=== PATIENT | male | born 1950 | race Caucasian/White ===

== ENCOUNTER → 2018-05-25 08:02 | Outpatient (CLI) | payer MEDICARE, OTHER, SELFPAY ==
[2018-05-25 11:08] LABS: Add Manual Diff / Slide Review NO; Basophils Absolute Auto 0 /uL (0-100); Basophils Percent Auto 0.4 % (0-2); Eosinophils Absolute Auto 200 /uL (0-450); Hematocrit 45.1 % (41-53); Hemoglobin 15.2 g/dL (13.5-17.5); Lymphocytes Absolute Auto 2100 /uL (1100-4500); Mean Corpuscular HGB Conc 33.6 % (30-36); Mean Corpuscular Hemoglobin 31.4 PG (26-34); Mean Corpuscular Volume 93.5 fL (80-100); Monocytes Absolute Auto 600 /uL (0-900); Monocytes Percent Auto 8.9 % (3-14); Neutrophils Absolute Auto 3900 /uL (1500-7000); Neutrophils Percent Auto 56.7 % (50-75); Platelet Count 137 X10^3/uL (150-400); Red Blood Cell Count 4.83 X10^6/uL (4.5-5.9); White Blood Cell Count 6.9 X10^3/uL (4.5-11.0)
[2018-05-25 11:38] LABS: Alanine Aminotransferase 49 IU/L (21-72); Albumin 4.3 g/dL (3.5-5.0); Albumin Globulin Ratio 1.6 (1.0-2.8); Alkaline Phosphatase 57 U/L (38-126); Aspartate Aminotransferase 35 IU/L (17-59); BUN Creatinine Ratio 18.9 (6-22); Blood Urea Nitrogen 17 mg/dL (9-20); Calcium 8.9 mg/dL (8.4-10.2); Carbon Dioxide 26 mmol/L (22-32); Chloride 102 mmol/L (98-107); Cholesterol 136 mg/dL (140-199); Estimated Glomerular Filt Rate > 60.0 mL/min (>60); Globulin 2.7 g/dL (1.7-4.1); Glucose 102 mg/dL (80-110); HDL Cholesterol 48 mg/dL (40-60); HEMOLYSIS < 15 (0-50); LDL Cholesterol Calculated 75 mg/dL (<100); Potassium 4.2 mmol/L (3.4-5.1); Sodium 139 mmol/L (137-145); Triglycerides 64 mg/dL (35-150)
[2018-05-25 12:02] LABS: Prostate Specific Antigen Scrn 0.608 ng/mL (0.1-4.0)
== END ==
PROVIDERS: PCP Family Medicine; Visit Provider Family Medicine
DX: I10 Essential (primary) hypertension (principal); Z12.5 Encounter for screening for malignant neoplasm of prostate
CPT/HCPCS: 36415; 80053; 80061; 84443; 85025; G0103

== ENCOUNTER 2019-03-26 08:55 | Emergency (ER) | payer MEDICARE, OTHER, SELFPAY ==
[2019-03-26] VITALS (31 sets, daily range): BP systolic 107–151; BP diastolic 61–94; PULSE 60–162; RESP 11–22; TEMP 36.3; O2SAT 92–95
--- NOTE | 2019-03-26 09:12 | ED_ITS ---
HPI - SOB/Dyspnea General Chief Complaint: Shortness of Breath/Dyspnea Stated Complaint: Thinks pulmonary embolism Time Seen by Provider: 03/26/19 09:04 Source: patient Mode of arrival: Wheelchair Limitations: no limitations History of Present Illness HPI Narrative: Patient is a 68-year-old male with history of atrial flutter and pulmonary embolism presenting with increasing shortness of breath over last 3 days. He says he thinks he has a pulmonary embolism He says going up a flight of stairs he gets extremely short of breath this morning it was significantly worse. He is noted to be in atrial fibrillation with heart rate in the 140s. He denies any recent travel. 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 Related Data Home Medications Medication Instructions Recorded Confirmed albuterol sulfate [ProAir HFA] 1 - 2 puff INHALATION Q6H PRN 03/26/19 03/26/19 hydrochlorothiazide 25 mg PO DAILY 03/26/19 03/26/19 lisinopril 20 mg PO QAM 03/26/19 03/26/19 lisinopril 40 mg PO QPM 03/26/19 03/26/19 Allergies Allergy/AdvReac Type Severity Reaction Status Date / Time No Known Drug Allergies Allergy Verified 03/26/19 09:08 Review of Systems Review of Systems Narrative: GENERAL: Denies chills, fatigue, malaise, fever, sweats, travel HEENT: Denies sinus pain, ear pain, sore throat, difficulty swallowing, neck pain RESPIRATORY: See HPI CARDIOVASCULAR: See HPI GASTROINTESTINAL: Denies nausea, vomiting, abdominal pain, diarrhea, constipation, melena. : Denies dysuria, frequency, incontinence, hematuria, urinary retention, flank pain. MUSCULOSKELETAL: Denies weakness, joint pain, or bony pain SKIN: No rash, no erythema, no pruritus NEUROLOGIC: Denies weakness, dizziness, headache, numbness, change in speech, confusion PSYCHIATRIC: No concerning psychosocial issues. 12 point review of systems is negative except for those stated above and HPI Patient History Medical History Atrial fibrillation (10/02/14) Essential hypertension (12/23/15) Pulmonary embolism (Acute) Surgical History History of cardiac radiofrequency ablation (RFA) Social History Smoking Status: Never smoker Smoking Status: Never smoker alcohol intake frequency: 0-2 drinks per day Substance Use Type: does not use Exam Initial Vital Signs Initial Vital Signs: Vital Signs Temperature 97.4 F L 03/26/19 09:05 Pulse Rate 162 H 03/26/19 09:05 Respiratory Rate 22 03/26/19 09:05 Blood Pressure 137/86 03/26/19 09:05 Pulse Oximetry 94 03/26/19 09:05 GENERAL: Well-appearing, well-nourished and in no acute distress. HEENT: Head atraumatic,EOMI, pupils reactive CARDIOVASCULAR: Tachycardic irregularly irregular RESPIRATORY: Breath sounds equal bilaterally, no wheezes rales or rhonchi. ABDOMEN: Soft, nontender. Normoactive bowel sounds all 4 quadrants. No guarding or rebound. EXTREMITIES: Normal range of motion, no clubbing or edema. Neurovascularly intact NEUROLOGICAL: Alert and oriented x4.Normal gait and speech. SKIN: Warm, dry, no laceration, no petechiae, no rashes or lesions. Course Orders Ordered: ED Orders 03/26/19 14:40 Urine Microscopic Stat 03/26/19 16:22 PTT [Partial Thromboplastin Time] Stat 03/26/19 17:23 Partial Thromboplastin Time Stat Discontinued Medications Diltiazem HCl (Cardizem) 10 mg IV NOW ONE Stop: 03/26/19 09:11 Last Admin: 03/26/19 09:24 Dose: 10 mg Documented by: BRANDYN Heparin Sodium (Porcine) (Heparin) 10,700 unit 80 unit/kg (75335 unit) IV NOW ONE Stop: 03/26/19 10:21 Last Admin: 03/26/19 10:26 Dose: 10,700 unit Documented by: BRANDYN Heparin Sodium/Dextrose (Heparin Drip) 25,000 unit in 500 mls @ 48.172 mls/hr IV CONT SHAN; Protocol Last Titration: 03/26/19 18:33 Dose: 0 units/kg/hr, 0 mls/hr Documented by: Titration: 03/26/19 18:06 Dose: 0 units/kg/hr, 0 mls/hr Documented by: Titration: 03/26/19 18:04 Dose: 18 units/kg/hr, 48.172 mls/hr Documented by: Admin: 03/26/19 10:27 Dose: 18 units/kg/hr, 48.172 mls/hr Documented by: BRANDYN DILTIAZEM (Diltiazem 125 Mg/125 [id number]) 125 mg in 125 mls @ 5 mls/hr IV TITRATE SHAN; Protocol Last Titration: 03/26/19 18:33 Dose: 0 mg/hr, 0 mls/hr Documented by: Admin: 03/26/19 12:09 Dose: 5 mg/hr, 5 mls/hr Documented by: CPRUITT Consultations Consultation #1: Dr. Manriquez at [facility] in patient's symptoms test results accepts patient Time: 13:00 Vital Signs Vital signs: Vital Signs - 8 hr 03/26/19 10:45 03/26/19 10:50 03/26/19 10:55 Pulse Rate 123 H 109 H 114 H Respiratory Rate 13 16 14 Blood Pressure [Left Arm] 135/75 147/90 H 140/83 Pulse Oximetry 94 93 93 03/26/19 11:00 03/26/19 11:25 03/26/19 11:30 Pulse Rate 121 H 60 99 H Respiratory Rate 16 11 L 13 Blood Pressure [Left Arm] 151/71 H 143/86 H 140/86 Pulse Oximetry 94 95 95 03/26/19 11:40 03/26/19 11:45 03/26/19 12:00 Pulse Rate 110 H 113 H 101 H Respiratory Rate 14 15 14 Blood Pressure [Left Arm] 140/74 141/74 H 131/61 Pulse Oximetry 94 94 95 03/26/19 12:15 03/26/19 13:10 03/26/19 13:55 Pulse Rate 111 H 109 H 110 H Respiratory Rate 14 16 15 Blood Pressure [Left Arm] 130/77 144/78 H 137/74 Pulse Oximetry 95 93 94 03/26/19 14:30 03/26/19 16:00 03/26/19 16:30 Pulse Rate 109 H 112 H 109 H Respiratory Rate 13 15 16 Blood Pressure [Left Arm] 133/77 144/77 H 131/86 Pulse Oximetry 93 94 95 03/26/19 17:00 03/26/19 17:30 03/26/19 18:19 Pulse Rate 114 H 113 H 112 H Respiratory Rate 16 20 16 Blood Pressure [Left Arm] 146/76 H 134/78 149/84 H Pulse Oximetry 92 93 92 MDM - SOB/Dyspnea Lab Data Attestation: I reviewed the patient's lab results. Result diagrams: 03/26/19 09:13 03/26/19 09:13 Labs: Lab Results 03/26/19 03/26/19 03/26/19 Range/Units 09:13 09:13 09:13 WBC 9.5 (4.5-11.0) X10^3/uL RBC 5.17 (4.5-5.9) X10^6/uL Hgb 16.4 (13.5-17.5) g/dL Hct 48.6 (41-53) % MCV 93.9 (80-100) fL MCH 31.7 (26-34) PG MCHC 33.8 (30-36) % RDW 13.1 (11.6-14.8) % Plt Count 106 L (150-400) X10^3/uL Neut % (Auto) 74.2 (50-75) % Lymph % (Auto) 15.8 L (25-40) % [place] % (Auto) 8.5 (3-14) % Eos % (Auto) 0.9 L (2-4) % Baso % (Auto) 0.6 (0-2) % Neut # (Auto) 7100 H (5134-2454) /uL Lymph # (Auto) 1500 (1048-6624) /uL [place] # (Auto) 800 (0-900) /uL Eos # (Auto) 100 (0-450) /uL Baso # (Auto) 100 (0-100) /uL PT 13.9 H (10.1-12.7) SECONDS INR 1.2 (0.9-1.3) APTT 33 (26.4-36.2) SECONDS Sodium 138 (137-145) mmol/L Potassium 4.0 (3.4-5.1) mmol/L Chloride 101 (98-107) mmol/L Carbon Dioxide 25 (22-32) mmol/L BUN 16 (9-20) mg/dL Creatinine 0.90 (0.66-1.25) mg/dL Estimated GFR > 60.0 (>60) mL/min BUN/Creatinine Ratio 17.8 (6-22) Glucose 252 H (80-110) mg/dL Calcium 9.2 (8.4-10.2) mg/dL Magnesium 1.8 (1.6-2.3) mg/dL Total Bilirubin 1.9 H (0.2-1.3) mg/dL AST 125 H (17-59) IU/L ALT 131 H (<50) IU/L Alkaline Phosphatase 72 (38-126) U/L Total Creatine Kinase 140 (55-170) U/L CK-MB (CK-2) 2.88 H (<2.37) ng/mL CK-MB (CK-2) Rel Index 2.1 (1.5-5.0) % Troponin I 0.016 (0.01-0.034) ng/mL B-Natriuretic Peptide 102 H (<100) Total Protein 7.3 (6.3-8.2) g/dL Albumin 4.3 (3.5-5.0) g/dL Globulin 3.0 (1.7-4.1) g/dL Albumin/Globulin Ratio 1.4 (1.0-2.8) Urine RBC (0-5/HPF) Urine WBC (0-5/HPF) Urine Bacteria (None) Ur Culture Indicated? 03/26/19 03/26/19 03/26/19 Range/Units 14:40 16:22 17:23 WBC (4.5-11.0) X10^3/uL RBC (4.5-5.9) X10^6/uL Hgb (13.5-17.5) g/dL Hct (41-53) % MCV (80-100) fL MCH (26-34) PG MCHC (30-36) % RDW (11.6-14.8) % Plt Count (150-400) X10^3/uL Neut % (Auto) (50-75) % Lymph % (Auto) (25-40) % [place] % (Auto) (3-14) % Eos % (Auto) (2-4) % Baso % (Auto) (0-2) % Neut # (Auto) (8731-2730) /uL Lymph # (Auto) (2418-0111) /uL [place] # (Auto) (0-900) /uL Eos # (Auto) (0-450) /uL Baso # (Auto) (0-100) /uL PT (10.1-12.7) SECONDS INR (0.9-1.3) APTT TNP TNP (26.4-36.2) SECONDS Sodium (137-145) mmol/L Potassium (3.4-5.1) mmol/L Chloride (98-107) mmol/L Carbon Dioxide (22-32) mmol/L BUN (9-20) mg/dL Creatinine (0.66-1.25) mg/dL Estimated GFR (>60) mL/min BUN/Creatinine Ratio (6-22) Glucose (80-110) mg/dL Calcium (8.4-10.2) mg/dL Magnesium (1.6-2.3) mg/dL Total Bilirubin (0.2-1.3) mg/dL AST (17-59) IU/L ALT (<50) IU/L Alkaline Phosphatase (38-126) U/L Total Creatine Kinase (55-170) U/L CK-MB (CK-2) (<2.37) ng/mL CK-MB (CK-2) Rel Index (1.5-5.0) % Troponin I (0.01-0.034) ng/mL B-Natriuretic Peptide (<100) Total Protein (6.3-8.2) g/dL Albumin (3.5-5.0) g/dL Globulin (1.7-4.1) g/dL Albumin/Globulin Ratio (1.0-2.8) Urine RBC 0-1/hpf (0-5/HPF) Urine WBC None seen (0-5/HPF) Urine Bacteria None seen (None) Ur Culture Indicated? Cult not indicated Urine Dip Bedside Urine Glucose Negative Bedside Urine Bilirubin - Negative Bedside Urine Ketone - Negative Urine Specific [place] 1.015 Bedside Urine Occult Blood +/- Bedside Urine pH 6.0 Bedside Urine Protein +/- 15 Bedside Urine Urobilinogen +/- 1mg Bedside Urine Nitrite - Negative Bedside Urine Leukocytes - Negative Esterase Imaging Data CT scan - chest: Radiologist's Impression: PROCEDURE: CT ANGIO CHEST PE PROTOCOL INDICATIONS: shortness of breath TECHNIQUE: After the administration of intravenous contrast, 2 mm thick sections acquired from the pulmonary apices to the posterior costophrenic angles. 3-dimensional maximum intensity projection (MIP) coronal and sagittal reformats were then acquired through the thorax. For radiation dose reduction, the following was used: automated exposure co ntrol, adjustment of mA and/or kV according to patient size. COMPARISON: [facility], CT, CT ANGIO CHEST ABD PELVIS, 04/02/2015, 8:02. FINDINGS: Image quality: Diagnostic. Pulmonary arteries: Numerous intraluminal filling defects within the pulmonary arteries are identified, which are predominately seen within the bilateral lower lobes (left greater than right). A saddle embolism is identified extending across the bifurcation of the main pulmonary arterial trunk that predominantly is seen extending into the left pulmonary arteries. Lungs and pleura: The lungs are relatively well aerated. No focal consolidation, effusion, or pneumothorax is identified. There is no lung mass or definite pulmonary nodule. Mediastinum: Dextrocardia is identified. No definitive for [employer] of the interatrial septum is appreciated. There is no pericardial effusion. A left-sided superior vena cava is noted. There is no mediastinal mass. No mediastinal or hilar adenopathy is evident. Enlarged right thyroid gland with substernal extension into the superior mediastinum is unchanged since 2016, but not well characterized. The esophagus is within normal limits. There is a small hiatal hernia. Bones and chest wall: No suspicious bony lesions. Ribs and thoracic spine appe ar intact throughout. Thyroid gland is markedly enlarged and extends into the upper mediastinum, similar to the prior examination from 2016, probably not significantly changed given differences in imaging technique.. No axillary or supraclavicular adenopathy. Abdomen: The included portions of the upper abdomen demonstrate leftward positioning of the liver, which demonstrates mild surface nodularity. The inferior vena cava is on the patient's left. The stomach is on the patient's right. The spleen is on the patient's right. And the pancreas is on the patient's right. Otherwise, the included portions of the upper abdomen are grossly unremarkable. IMPRESSION: 1. Extensive pulmonary emboli with associated saddle embolism. Evaluation for right heart strain is suboptimal on this examination. No convincing findings of right heart strain are appreciated. However, the heart is mildly enlarged. 2. No pulmonary consolidation, effusion, or pneumothorax. 3. Dextrocardia with situs inversus. 4. Nonspecific nodularity to the surface of the liver may represent hepatic cirrhosis and clinical correlation is recommended. 5. Small hiatal hernia. Note: Findings were discussed with Dr. Rosario at 1020 hours (PST) and 03/26/19. Dictated by: Tano Harris M.D. on 03/26/2019 at 9:17 Chest x-ray: Radiologist's Impression: PROCEDURE: XR CHEST 1V INDICATIONS: sob TECHNIQUE: One view of the chest was acquired. COMPARISON: [facility], CHEST 2 VIEW, 10/03/2014, 6:27. FINDINGS: Surgical changes and devices: None. Lungs and pleura: Lungs are clear. No pleural effusions or pneumothorax. Mediastinum: Mediastinal contours appear normal. Heart size is normal. There is aortic atherosclerosis. Dextrocardia is noted. Bones and chest wall: No suspicious bony lesions. Overlying soft tissues appear unremarkable. IMPRESSION: Stable chest. No acute cardiopulmonary process is evident. Dictated by: Tano Harris M.D. on 03/26/2019 at 9:25 Approved by: Tano Harris M.D. on 03/26/2019 at 9:2 ECG Data Attestation: I personally reviewed and interpreted this ECG as follows: Prior ECG tracings: not available for review Interpretation: Atrial fibrillation rate [address] elevations no depressions no priors to EKG 2. Atrial fibrillation heart rate [address] changes MDM Narrative Medical decision making narrative: Patient is hemodynamically stable not h ypotensive does require 1-2 L of nasal cannula on room air patient is 91-92%. Placed on Cardizem drip for atrial fibrillation along with heparin for pulmonary embolism. He is otherwise resting comfortably and in no acute distress Spoke with Dr. bowen her request patient be transferred to higher level of care for saddle embolism. Dr. Manriquez at [facility] hospitalist has been updated on patient's symptoms test results accepts patient for transfer. Patient placed on heparin drip PTT supratherapeutic and heparin drip. Just prior to arrival. Ambulance transfer crew is already at bedside. Critical Care Time Critical Care Time Critical Care Time: Yes Total Critical Care Time: 45 Attestation: The high probability of a clinically significant, sudden or life threatening deterioration of the [cardiovascular] system(s) required my full and direct attention, intervention and personal management. The aggregate critical care time was [45] minutes. This time is in addition to time spent performing reported procedures but includes the following: [x] Data Review and interpretation [x] Patient assessment and monitoring of vital signs [x] Documentation [x] Medication orders and management Discharge Plan Departure Patient Disposition: [facility] Clinical Impression: Pulmonary emboli Qualifiers: Pulmonary embolism type: saddle Chronicity: acute Acute cor pulmonale presence: without acute cor pulmonale Qualified Code(s): I26.92 - Saddle embolus of pulmonary artery without acute cor pulmonale Discharge Date/Time: 03/26/19 18:34 Prescriptions: No Action lisinopril 40 mg tablet 40 mg PO QPM RF: 0 hydrochlorothiazide 25 mg tablet 25 mg PO DAILY RF: 0 albuterol sulfate [ProAir HFA] 90 mcg/actuation HFA aerosol inhaler 1 - 2 puff inhalation Q6H PRN (Reason: Wheezing) RF: 0 lisinopril 40 mg tablet 20 mg PO QAM RF: 0 Referrals: Vinicio Macias MD [Primary Care Provider] -
[2019-03-26 09:20] LABS: Add Manual Diff / Slide Review NO; Basophils Absolute Auto 100 /uL (0-100); Basophils Percent Auto 0.6 % (0-2); Eosinophils Absolute Auto 100 /uL (0-450); Eosinophils Percent Auto 0.9 % (2-4); Hematocrit 48.6 % (41-53); Hemoglobin 16.4 g/dL (13.5-17.5); Lymphocytes Absolute Auto 1500 /uL (1100-4500); Lymphocytes Percent Auto 15.8 % (25-40); Mean Corpuscular HGB Conc 33.8 % (30-36); Mean Corpuscular Hemoglobin 31.7 PG (26-34); Mean Corpuscular Volume 93.9 fL (80-100); Monocytes Absolute Auto 800 /uL (0-900); Monocytes Percent Auto 8.5 % (3-14); Neutrophils Absolute Auto 7100 /uL (1500-7000); Neutrophils Percent Auto 74.2 % (50-75); Platelet Count 106 X10^3/uL (150-400); Red Blood Cell Count 5.17 X10^6/uL (4.5-5.9); Red Cell Distribution Width 13.1 % (11.6-14.8); White Blood Cell Count 9.5 X10^3/uL (4.5-11.0)
[2019-03-26] MEDS: dilTIAZem 5 MG/ML SDV 10 MG IV (09:24)
[2019-03-26 09:27] LABS: INR 1.2 (0.9-1.3); Prothrombin Time 13.9 SECONDS (10.1-12.7)
[2019-03-26 09:30] LABS: PTT Partial Thromboplastin Tim 33 SECONDS (26.4-36.2)
[2019-03-26 09:35] LABS: Alanine Aminotransferase 131 IU/L (<50); Albumin 4.3 g/dL (3.5-5.0); Albumin Globulin Ratio 1.4 (1.0-2.8); Alkaline Phosphatase 72 U/L (38-126); Aspartate Aminotransferase 125 IU/L (17-59); BUN Creatinine Ratio 17.8 (6-22); Bilirubin Total 1.9 mg/dL (0.2-1.3); Blood Urea Nitrogen 16 mg/dL (9-20); Calcium 9.2 mg/dL (8.4-10.2); Carbon Dioxide 25 mmol/L (22-32); Chloride 101 mmol/L (98-107); Creatine Kinase 140 U/L (55-170); Estimated Glomerular Filt Rate > 60.0 mL/min (>60); Glucose 252 mg/dL (80-110); HEMOLYSIS 34 (0-50); Magnesium 1.8 mg/dL (1.6-2.3); Sodium 138 mmol/L (137-145); Total Protein 7.3 g/dL (6.3-8.2)
--- NOTE | 2019-03-26 09:44 | DI.CT.S_ITS ---
PROCEDURE: CT ANGIO CHEST PE PROTOCOL INDICATIONS: shortness of breath TECHNIQUE: After the administration of intravenous contrast, 2 mm thick sections acquired from the pulmonary apices to the posterior costophrenic angles. 3-dimensional maximum intensity projection (MIP) coronal and sagittal reformats were then acquired through the thorax. For radiation dose reduction, the following was used: automated exposure control, adjustment of mA and/or kV according to patient size. COMPARISON: [facility], CT, CT ANGIO CHEST ABD PELVIS, 04/02/2015, 8:02. FINDINGS: Image quality: Diagnostic. Pulmonary arteries: Numerous intraluminal filling defects within the pulmonary arteries are identified, which are predominately seen within the bilateral lower lobes (left greater than right). A saddle embolism is identified extending across the bifurcation of the main pulmonary arterial trunk that predominantly is seen extending into the left pulmonary arteries. Lungs and pleura: The lungs are relatively well aerated. No focal consolidation, effusion, or pneumothorax is identified. There is no lung mass or definite pulmonary nodule. Mediastinum: Dextrocardia is identified. No definitive for [employer] of the interatrial septum is appreciated. There is no pericardial effusion. A left-sided superior vena cava is noted. There is no mediastinal mass. No mediastinal or hilar adenopathy is evident. Enlarged right thyroid gland with substernal extension into the superior mediastinum is unchanged since 2016, but not well characterized. The esophagus is within normal limits. There is a small hiatal hernia. Bones and chest wall: No suspicious bony lesions. Ribs and thoracic spine appear intact throughout. Thyroid gland is markedly enlarged and extends into the upper mediastinum, similar to the prior examination from 2016, probably not significantly changed given differences in imaging technique.. No axillary or supraclavicular adenopathy. Abdomen: The included portions of the upper abdomen demonstrate leftward positioning of the liver, which demonstrates mild surface nodularity. The inferior vena cava is on the patient's left. The stomach is on the patient's right. The spleen is on the patient's right. And the pancreas is on the patient's right. Otherwise, the included portions of the upper abdomen are grossly unremarkable. IMPRESSION: 1. Extensive pulmonary emboli with associated saddle embolism. Evaluation for right heart strain is suboptimal on this examination. No convincing findings of right heart strain are appreciated. However, the heart is mildly enlarged. 2. No pulmonary consolidation, effusion, or pneumothorax. 3. Dextrocardia with situs inversus. 4. Nonspecific nodularity to the surface of the liver may represent hepatic cirrhosis and clinical correlation is recommended. 5. Small hiatal hernia. Note: Findings were discussed with Dr. Rosario at 1020 hours ([facility]) and 03/26/19. Dictated by: Tano Harris M.D. on 03/26/2019 at 9:17 Approved by: Tano Harris M.D. on 03/26/2019 at 9:24
[2019-03-26 09:47] LABS: Troponin I 0.016 ng/mL (0.01-0.034)
[2019-03-26 09:48] LABS: B Type Natriuretic Peptide 102 (<100)
[2019-03-26 09:50] LABS: CKMB % Relative Index 2.1 % (1.5-5.0); Creatine Kinase MB 2.88 ng/mL (<2.37)
[2019-03-26] MEDS: HEPARIN 5,000 UNIT/ML VIAL 10700 UNIT IV (10:26)
[2019-03-26] MEDS: HEPARIN DRIP 25,000 UNIT/500 ML IV.SOLN 48.172 UNIT IV (10:27)
[2019-03-26] MEDS: DILTIAZEM 125 MG/125 ML PIGGYBACK IV (12:09)
--- NOTE | 2019-03-26 16:40 | PC.NURSE ---
Report called to Johnny PENA at [facility].
[2019-03-26 16:43] LABS: Bacteria Urine None Seen; WBC Urine None Seen (0-5/HPF)
[2019-03-26 16:50] LABS: Culture Indicated Urine Cult Not Indicated; RBC Urine 0-1/HPF (0-5/HPF)
== END 2019-03-26 18:34 | disposition short-term general hospital (02) ==
PROVIDERS: Emergency Provider Emergency Medicine; PCP Family Medicine
DX: I26.92 Saddle embolus of pulmonary artery without acute cor pulmonale (principal); I48.20 Chronic atrial fibrillation, unspecified
CPT/HCPCS: 36415; 71045; 71275; 80053; 81003; 81015; 82550; 82553; 83735; 83880; 84484; 85025; 85610; 85730; 93005; 96365; 96366; 96368; 96375; 96376; 99285; 99291; J1644; Q9967

== ENCOUNTER → 2019-08-31 09:16 | Outpatient (CLI) | payer MEDICARE, OTHER, SELFPAY ==
[2019-09-01 09:10] LABS: SARS CoV19 IgG Negative (Negative)
== END ==
PROVIDERS: PCP Family Medicine; Referring Provider Family Medicine; Visit Provider Family Medicine
DX: Z86.711 Personal history of pulmonary embolism (principal); Z91.89 Other specified personal risk factors, not elsewhere classified
CPT/HCPCS: 36415; 86769

== ENCOUNTER → 2020-02-26 07:23 | Outpatient (CLI) | payer MEDICARE, OTHER, SELFPAY ==
[2020-02-26 08:06] LABS: Add Manual Diff / Slide Review NO; Basophils Absolute Auto 0 /uL (0-100); Basophils Percent Auto 0.7 % (0-2); Eosinophils Absolute Auto 200 /uL (0-450); Eosinophils Percent Auto 2.5 % (2-4); Hematocrit 44.9 % (41-53); Hemoglobin 14.9 g/dL (13.5-17.5); Lymphocytes Absolute Auto 1900 /uL (1100-4500); Lymphocytes Percent Auto 27.8 % (25-40); Mean Corpuscular HGB Conc 33.1 % (30-36); Mean Corpuscular Hemoglobin 30.9 PG (26-34); Mean Corpuscular Volume 93.3 fL (80-100); Monocytes Absolute Auto 600 /uL (0-900); Monocytes Percent Auto 8.8 % (3-14); Neutrophils Absolute Auto 4100 /uL (1500-7000); Neutrophils Percent Auto 60.2 % (50-75); Platelet Count 152 X10^3/uL (150-400); Red Blood Cell Count 4.81 X10^6/uL (4.5-5.9); Red Cell Distribution Width 13.1 % (11.6-14.8); White Blood Cell Count 6.9 X10^3/uL (4.5-11.0)
[2020-02-26 08:46] LABS: Alanine Aminotransferase 25 IU/L (<50); Albumin Globulin Ratio 1.5 (1.0-2.8); Alkaline Phosphatase 60 U/L (38-126); Aspartate Aminotransferase 29 IU/L (17-59); BUN Creatinine Ratio 17.8 (6-22); Bilirubin Total 0.8 mg/dL (0.2-1.3); Blood Urea Nitrogen 13 mg/dL (9-20); Carbon Dioxide 28 mmol/L (22-32); Chloride 105 mmol/L (98-107); Cholesterol 144 mg/dL (140-199); Estimated Glomerular Filt Rate > 60.0 mL/min (>60); Globulin 2.7 g/dL (1.7-4.1); Glucose 114 mg/dL (80-110); HDL Cholesterol 56 mg/dL (40-60); HEMOLYSIS < 15 (0-50); LDL Cholesterol Calculated 75 mg/dL (<100); Potassium 4.3 mmol/L (3.4-5.1); Sodium 138 mmol/L (137-145); Total Protein 6.7 g/dL (6.3-8.2); Triglycerides 63 mg/dL (35-150)
[2020-02-26 09:13] LABS: Prostate Specific Antigen Scrn 0.413 ng/mL (0.1-4.0)
== END ==
PROVIDERS: PCP Family Medicine; Referring Provider Family Medicine; Visit Provider Family Medicine
DX: I10 Essential (primary) hypertension (principal); I48.91 Unspecified atrial fibrillation; Z12.5 Encounter for screening for malignant neoplasm of prostate
CPT/HCPCS: 36415; 80053; 80061; 85025; G0103

== ENCOUNTER → 2020-04-23 08:36 | Outpatient (CLI) | payer MEDICARE, OTHER, SELFPAY ==
[2020-04-23] MEDS: COVID-19 VACC #1, MRNA(MOD) 100 MCG/0.5 ML VIAL IM (08:41)
== END ==
PROVIDERS: PCP Family Medicine; Visit Provider Internal Medicine
DX: Z23 Encounter for immunization (principal)
CPT/HCPCS: 0011A; 91301

== ENCOUNTER → 2020-05-21 08:35 | Outpatient (CLI) | payer MEDICARE, OTHER, SELFPAY ==
[2020-05-21] MEDS: COVID-19 VACC #2, MRNA(MOD) 100 MCG/0.5 ML VIAL IM (08:40)
== END ==
PROVIDERS: PCP Family Medicine; Visit Provider Internal Medicine
DX: Z23 Encounter for immunization (principal)
CPT/HCPCS: 0012A; 91301

== ENCOUNTER → 2020-12-25 06:52 | Outpatient (ROUT) | payer MEDICARE, OTHER, SELFPAY ==
[2020-12-26 15:08] LABS: Fecal Immunochemical Test Negative (Negative)
== END ==
PROVIDERS: PCP Family Medicine; Visit Provider Family Medicine
DX: I10 Essential (primary) hypertension (principal); Z12.5 Encounter for screening for malignant neoplasm of prostate
CPT/HCPCS: 82274

== ENCOUNTER → 2021-02-26 08:03 | Outpatient (CLI) | payer MEDICARE, OTHER, SELFPAY ==
[2021-02-26 09:21] LABS: Add Manual Diff / Slide Review NO; Basophils Absolute Auto 0 /uL (0-100); Basophils Percent Auto 0.5 % (0-2); Eosinophils Absolute Auto 200 /uL (0-450); Hematocrit 45.7 % (41-53); Hemoglobin 15.5 g/dL (13.5-17.5); Lymphocytes Absolute Auto 2400 /uL (1100-4500); Lymphocytes Percent Auto 30.2 % (25-40); Mean Corpuscular HGB Conc 33.9 % (30-36); Mean Corpuscular Hemoglobin 31.3 PG (26-34); Mean Corpuscular Volume 92.3 fL (80-100); Monocytes Absolute Auto 700 /uL (0-900); Neutrophils Absolute Auto 4600 /uL (1500-7000); Neutrophils Percent Auto 58.3 % (50-75); Platelet Count 142 X10^3/uL (150-400); Red Blood Cell Count 4.95 X10^6/uL (4.5-5.9); White Blood Cell Count 7.9 X10^3/uL (4.5-11.0)
[2021-02-26 10:11] LABS: Alanine Aminotransferase 22 IU/L (<50); Albumin 4.1 g/dL (3.5-5.0); Albumin Globulin Ratio 1.6 (1.0-2.8); Alkaline Phosphatase 56 U/L (38-126); Aspartate Aminotransferase 25 IU/L (17-59); BUN Creatinine Ratio 19.2 (6-22); Bilirubin Total 1.1 mg/dL (0.2-1.3); Blood Urea Nitrogen 15 mg/dL (9-20); Calcium 8.9 mg/dL (8.4-10.2); Carbon Dioxide 30 mmol/L (22-32); Chloride 102 mmol/L (98-107); Cholesterol 150 mg/dL (140-199); Estimated Glomerular Filt Rate > 60.0 mL/min (>60); Globulin 2.6 g/dL (1.7-4.1); Glucose 104 mg/dL (80-110); HDL Cholesterol 58 mg/dL (40-60); LDL Cholesterol Calculated 79 mg/dL (<100); Potassium 4.5 mmol/L (3.4-5.1); Sodium 140 mmol/L (137-145); Total Protein 6.7 g/dL (6.3-8.2); Triglycerides 65 mg/dL (35-150)
[2021-02-26 10:43] LABS: HEMOLYSIS < 15 (0-50); Prostate Specific Antigen Scrn 0.418 ng/mL (0.1-4.0)
== END ==
PROVIDERS: PCP Family Medicine; Referring Provider Family Medicine; Visit Provider Family Medicine
DX: I10 Essential (primary) hypertension (principal); Z12.5 Encounter for screening for malignant neoplasm of prostate
CPT/HCPCS: 36415; 80053; 80061; 85025; G0103

== ENCOUNTER → 2022-02-24 08:07 | Outpatient (CLI) | payer MEDICARE, OTHER, SELFPAY ==
[2022-02-24 08:42] LABS: Add Manual Diff / Slide Review NO; Basophils Absolute Auto 100 /uL (0-100); Basophils Percent Auto 0.7 % (0-2); Eosinophils Absolute Auto 200 /uL (0-450); Eosinophils Percent Auto 2.9 % (2-4); Hematocrit 47.6 % (41-53); Hemoglobin 15.7 g/dL (13.5-17.5); Lymphocytes Absolute Auto 2200 /uL (1100-4500); Lymphocytes Percent Auto 28.3 % (25-40); Mean Corpuscular Hemoglobin 30.9 PG (26-34); Mean Corpuscular Volume 93.5 fL (80-100); Monocytes Absolute Auto 700 /uL (0-900); Monocytes Percent Auto 8.7 % (3-14); Neutrophils Absolute Auto 4500 /uL (1500-7000); Neutrophils Percent Auto 59.4 % (50-75); Platelet Count 164 X10^3/uL (150-400); Red Blood Cell Count 5.09 X10^6/uL (4.5-5.9); Red Cell Distribution Width 13.1 % (11.6-14.8); White Blood Cell Count 7.7 X10^3/uL (4.5-11.0)
[2022-02-24 09:10] LABS: Alanine Aminotransferase 27 IU/L (<50); Albumin 4.1 g/dL (3.5-5.0); Albumin Globulin Ratio 1.5 (1.0-2.8); Alkaline Phosphatase 65 U/L (38-126); Aspartate Aminotransferase 27 IU/L (17-59); BUN Creatinine Ratio 15.6 (6-22); Bilirubin Total 0.9 mg/dL (0.2-1.3); Blood Urea Nitrogen 12 mg/dL (9-20); Calcium 8.9 mg/dL (8.4-10.2); Carbon Dioxide 31 mmol/L (22-32); Chloride 101 mmol/L (98-107); Cholesterol 141 mg/dL (140-199); Estimated Glomerular Filt Rate > 60 mL/min (>60); Globulin 2.8 g/dL (1.7-4.1); Glucose 109 mg/dL (80-110); HDL Cholesterol 55 mg/dL (40-60); HEMOLYSIS < 15 (0-50); LDL Cholesterol Calculated 73 mg/dL (<100); Potassium 4.4 mmol/L (3.4-5.1); Sodium 139 mmol/L (137-145); Total Protein 6.9 g/dL (6.3-8.2); Triglycerides 63 mg/dL (35-150)
[2022-02-24 09:36] LABS: Prostate Specific Antigen Scrn 0.483 ng/mL (0.1-4.0)
== END ==
PROVIDERS: PCP Family Medicine; Referring Provider Family Medicine; Visit Provider Family Medicine
DX: I10 Essential (primary) hypertension (principal); Z12.5 Encounter for screening for malignant neoplasm of prostate
CPT/HCPCS: 36415; 80053; 80061; 85025; G0103

== ENCOUNTER → 2023-05-20 06:54 | Outpatient (CLI) | payer MEDICARE, OTHER, SELFPAY ==
[2023-05-20 08:06] LABS: Add Manual Diff / Slide Review NO; Basophils Absolute Auto 100 /uL (0-100); Basophils Percent Auto 0.9 % (0-2); Eosinophils Absolute Auto 300 /uL (0-450); Eosinophils Percent Auto 3.9 % (2-4); Hematocrit 44.3 % (41-53); Hemoglobin 14.9 g/dL (13.5-17.5); Lymphocytes Absolute Auto 1900 /uL (1100-4500); Lymphocytes Percent Auto 28.1 % (25-40); Mean Corpuscular HGB Conc 33.6 % (30-36); Mean Corpuscular Hemoglobin 31.6 PG (26-34); Mean Corpuscular Volume 94.1 fL (80-100); Monocytes Absolute Auto 600 /uL (0-900); Monocytes Percent Auto 8.8 % (3-14); Neutrophils Absolute Auto 3900 /uL (1500-7000); Neutrophils Percent Auto 58.3 % (50-75); Platelet Count 147 X10^3/uL (150-400); Red Blood Cell Count 4.71 X10^6/uL (4.5-5.9); Red Cell Distribution Width 13.1 % (11.6-14.8); White Blood Cell Count 6.7 X10^3/uL (4.5-11.0)
[2023-05-20 08:31] LABS: Alanine Aminotransferase 26 IU/L (<50); Albumin 3.8 g/dL (3.5-5.0); Albumin Globulin Ratio 1.4 (1.0-2.8); Alkaline Phosphatase 56 U/L (38-126); Aspartate Aminotransferase 30 IU/L (17-59); BUN Creatinine Ratio 15.2 (6-22); Blood Urea Nitrogen 12 mg/dL (9-20); Calcium 8.9 mg/dL (8.4-10.2); Carbon Dioxide 28 mmol/L (22-32); Chloride 101 mmol/L (98-107); Cholesterol 133 mg/dL (140-199); Estimated Glomerular Filt Rate > 60 mL/min (>60); Globulin 2.8 g/dL (1.7-4.1); Glucose 108 mg/dL (80-110); HDL Cholesterol 55 mg/dL (40-60); HEMOLYSIS < 15 (0-50); LDL Cholesterol Calculated 67 mg/dL (<100); Potassium 4.3 mmol/L (3.4-5.1); Sodium 138 mmol/L (137-145); Total Protein 6.6 g/dL (6.3-8.2); Triglycerides 54 mg/dL (35-150)
[2023-05-20 08:57] LABS: Prostate Specific Antigen Scrn 0.498 ng/mL (0.1-4.0)
== END ==
PROVIDERS: PCP Family Medicine; Referring Provider Family Medicine; Visit Provider Family Medicine
DX: Z12.5 Encounter for screening for malignant neoplasm of prostate (principal); Z68.37 Body mass index [BMI] 37.0-37.9, adult; I10 Essential (primary) hypertension; I48.92 Unspecified atrial flutter; Z86.711 Personal history of pulmonary embolism
CPT/HCPCS: 36415; 80053; 80061; 85025; G0103

== ENCOUNTER → 2023-08-05 08:28 | Outpatient (CLI) | payer MEDICARE, OTHER, SELFPAY ==
--- NOTE | 2023-08-05 08:29 | DI.US.S_ITS ---
PROCEDURE: US ABDOMEN LIMITED INDICATIONS: r/o inguinal hernia TECHNIQUE: Real-time focused scanning was performed of the abdomen, with image documentation. COMPARISON: None. Findings and impression: In the area of concern in the left inguinal region, there is a fat containing hernia measuring 1.5 cm at the neck. The sac measures 8.5 x 2.7 x 4.8 cm. Dictated by: Naresh Mota M.D. on 08/05/2023 at 9:08 Approved by: Naresh Mota M.D. on 08/05/2023 at 9:09
== END ==
LOC: US 08:29
PROVIDERS: PCP Family Medicine; Referring Provider Family Medicine; Visit Provider Family Medicine
DX: K40.90 Unilateral inguinal hernia, without obstruction or gangrene, not specified as recurrent (principal); R10.32 Left lower quadrant pain
CPT/HCPCS: 76705

== ENCOUNTER → 2024-07-17 07:34 | Outpatient (CLI) | payer MEDICARE, OTHER, SELFPAY ==
[2024-07-17 09:20] LABS: Blood Urea Nitrogen 10 mg/dL (9-20); Calcium 9.1 mg/dL (8.4-10.2); Carbon Dioxide 27 mmol/L (22-32); Chloride 102 mmol/L (98-107); Cholesterol 156 mg/dL (140-199); Estimated Glomerular Filt Rate > 60 mL/min (>60); Glucose 103 mg/dL (80-110); HDL Cholesterol 64 mg/dL (40-60); HEMOLYSIS < 15 (0-50); LDL Cholesterol Calculated 78 mg/dL (<100); Potassium 4.2 mmol/L (3.4-5.1); Sodium 138 mmol/L (137-145); Triglycerides 69 mg/dL (35-150)
[2024-07-17 09:52] LABS: Prostate Specific Antigen Scrn 0.551 ng/mL (0.1-4.0)
== END ==
PROVIDERS: PCP Family Medicine; Referring Provider Family Medicine; Visit Provider Family Medicine
DX: I10 Essential (primary) hypertension (principal); Z12.5 Encounter for screening for malignant neoplasm of prostate; Z98.890 Other specified postprocedural states; Z86.79 Personal history of other diseases of the circulatory system; I48.92 Unspecified atrial flutter
CPT/HCPCS: 36415; 80048; 80061; G0103